=== PATIENT | female | born 1965 | race Two or more races ===

== ENCOUNTER 2016-11-11 13:23 | Emergency (ER) | payer OTHER ==
[~2016-11-11] VITALS: Ht 152.4 cm; Wt 61.2 kg
[2016-11-11] MEDS ORDERED: Methocarbamol 750mg tab ORAL ONE (14:15)
--- NOTE | 2016-11-11 14:27 | Emergency Room Report ---
History of Present Illness General Chief Complaint: Multiple Trauma/Fall Source: Patient Present Illness HPI 51-year-old female with no significant past medical history, presenting with left arm pain. Patient states that she was walking downstairs tripped and fell onto her left side. Patient denies any head trauma or LOC. Patient sustained bruising to her left arm. Patient now complaining of left arm pain as well as a right thigh tox pain. Left arm pain is localized to upper arm and elbow, patient says that she is able to move arm however with some pain. Patient also complaining of right buttocks pain radiating down the right leg sharp in nature. Patient denies any numbness or tingling to lower extremities. Patient states that she has been able to ambulate without any difficulty. Patient denies any saddle anesthesia or urinary retention. Not on blood thinners. Tetanus is not up-to-date. Allergies: Coded Allergies: NESTOR DUARTE (Verified Allergy, Unknown, 11/11/16) Patient History Past Medical History: see triage record Past Surgical History: none Pertinent Family History: none Last Menstrual Period: none Now: No Reviewed Nursing Documentation: PMH: Agreed, PSxH: Agreed Nursing Documentation-PMH Past Medical History: No Stated History Review of Systems All Other Systems: negative except mentioned in HPI Physical Exam Vital Signs Date Time Temp Pulse Resp B/P (MAP) Pulse Ox O2 Delivery O2 Flow Rate FiO2 11/11/16 13:48 98.1 83 18 137/83 98 Room Air Sp02 EP Interpretation: reviewed, normal General Appearance: normal inspection, well appearing, no apparent distress, alert, GCS 15, non-toxic, other - Middle aged female, conversing appropriately, appears to be in mild pain, ambulating around exam room Head: normocephalic, atraumatic Eyes: bilateral eye normal inspection, bilateral eye PERRL, bilateral eye EOMI ENT: normal ENT inspection, normal pharynx, normal voice, moist mucus membranes Neck: normal inspection, full range of motion, supple Respiratory: normal inspection, lungs clear, normal breath sounds, no respiratory distress, no retraction, no wheezing, speaking full sentences, chest symmetrical Cardiovascular #1: normal inspection, regular rate, rhythm, no edema, normal capillary refill Cardiovascular #2: 2+ radial (R), 2+ radial (L) Gastrointestinal: normal inspection, non tender, soft, non-distended, no guarding Genitourinary: no CVA tenderness Musculoskeletal: other - Mild right-sided lumbar paraspinal tenderness. No midline tenderness. Left distal humerus mild ecchymosis, tender to palpation, tender lateral elbow, limited range of motion secondary to pain. No tenderness along the wrist forearm or shoulder. Full range of motion wrist and shoulder. Distal pulses intact Neurologic: normal inspection, alert, oriented x3, responsive, motor strength/ tone normal, sensory intact, normal gait, speech normal, other - Motor strength 5 out of 5 all extremities. Psychiatric: normal inspection, judgement/insight normal, memory normal Skin: normal inspection, normal color, no rash, warm/dry, well hydrated, normal turgor Procedures Splinting Splinting : Consent: Verbal Location: L elbow Hand-Made Type: plaster Splint: sugar-tong - double sugar tong Pre-Proc Neuro Vasc Exam: normal Post-Proc Neuro Vasc Exam: normal Patient Tolerated: Well Complications: None Medical Decision Making ER Course 51 yo F with left arm pain and right back pain from fall, mechanical DDX: Contusion versus fracture versus dislocation Plan: X-ray elbow and left humerus, pain control ER course: Patient has remained stable during ED stay. Double sugar tong applied to L upper ext Disposition: Patient is to be discharged to home. Prescriptions given are motrin/robaxin Patient is instructed to follow up with their primary care doctor within 5 days. Patient is instructed to follow up with orthopedics in 1 week. Strict return precautions discussed with patient such as fever, chills, worsening/severe pain. Patient verbalizes understanding and agrees with plan. Please note that this Emergency Department Report was dictated using [employer] laboratory assistant technology software, occasionally this can lead to erroneous entry secondary to interpretation by the dictation equipment Other X-Ray Diagnostic Results Other X-Ray Diagnostic Results #1: X-Ray ordered: L Humerus # of Views/Limited Vs Complete: Complete Indication: Pain EP Interpretation: Yes Interpretation: no dislocation, no soft tissue swelling, no fractures Impression: No acute disease Interpreting ER Provider: Electronically signed by Cyndee Aponte MD Other X-Ray Diagnostic Results #2: # of Views/Limited Vs Complete: 3 View Indication: Pain EP Interpretation: Yes Interpretation: other - avulsion fracture of L olecranon Impression: Other - L olecranon fx, avulsion, non displaced Last Vital Signs Date Time Temp Pulse Resp B/P (MAP) Pulse Ox O2 Delivery O2 Flow Rate FiO2 11/11/16 13:48 98.1 83 18 137/83 98 Room Air Disposition: HOME, SELF-CARE Condition: Improved Scripts Methocarbamol* (ROBAXIN*) 500 Mg Tablet 500 MG PO QID, #28 TAB 0 Refills Prov: Cyndee Aponte M.D. 11/11/16 Ibuprofen* (MOTRIN*) 600 Mg Tablet 600 MG ORAL Q8H Y for For Pain, #30 TAB 0 Refills Prov: Cyndee Aponte M.D. 11/11/16 Cyndee Aponte M.D. Nov 11, 2016 14:27
[2016-11-11 14:28] VITALS: BP 137/83
[2016-11-11] MEDS ORDERED: ROBAXIN500 MG PO (15:12)
[2016-11-11] MEDS ORDERED: IBUPROFEN600 MG ORAL (15:12)
[2016-11-11 15:58] VITALS: BP 139/87
--- NOTE | 2016-11-12 10:39 | Diagnostic Imaging Report ---
Indications: PAIN Technique: Two views of the humerus Comparison: None Findings: No acute fractures. No dislocations. Joint spaces are preserved. No radiopaque foreign body. Normal mineralization. Impression: No acute process This agrees with the preliminary interpretation provided by the emergency room physician. This agrees with the preliminary interpretation provided overnight by [facility].
--- NOTE | 2016-11-12 10:50 | Diagnostic Imaging Report ---
Indications:PAIN Technique: Three or 4 views of the left elbow Comparison: None Findings:There are degenerative proliferative changes of the olecranon. No definite joint effusion. No acute fractures. No dislocations. Joint spaces are preserved. Impression:No acute bony trauma This agrees with the preliminary interpretation provided overnight by [facility].
== END 2016-11-11 15:38 | disposition home or self-care (01) ==
LOC: EMR 15:13
DX: M79.602 Pain in left arm (principal); S52.022A Displaced fracture of olecranon process without intraarticular extension of left ulna, initial encounter for closed fracture; S30.0XXA Contusion of lower back and pelvis, initial encounter; W01.0XXA Fall on same level from slipping, tripping and stumbling without subsequent striking against object, initial encounter; Y92.9 Unspecified place or not applicable
CPT/HCPCS: 29105; 99284

== ENCOUNTER 2016-11-23 11:07 | Emergency (ER) | payer OTHER ==
[~2016-11-23] VITALS: Ht 160 cm; Wt 54.4 kg
[~2016-11-23 11:07] MED LIST: IBUPROFEN600 MG ORAL; ROBAXIN500 MG PO
--- NOTE | 2016-11-23 11:22 | Emergency Room Report ---
History of Present Illness General Chief Complaint: Upper Extremity Injury Source: Patient Present Illness Allergies: Coded Allergies: NESTOR DUARTE (Verified Allergy, Unknown, 11/11/16) Patient History Last Menstrual Period: none Now: No Nursing Documentation-[facility] Past Medical History: No History, Except For Physical Exam Vital Signs Date Time Temp Pulse Resp B/P (MAP) Pulse Ox O2 Delivery O2 Flow Rate FiO2 11/23/16 11:10 98.2 89 18 124/80 98 Room Air Medical Decision Making ER Course Patient left without being seen Last Vital Signs Date Time Temp Pulse Resp B/P (MAP) Pulse Ox O2 Delivery O2 Flow Rate FiO2 11/23/16 11:10 98.2 89 18 124/80 98 Room Air Disposition: LEFT W/OUT BEING SEEN Condition: Unknown SONDRA PEREZ D.O. Nov 23, 2016 11:22
[2016-11-23 11:41] VITALS: BP 124/80
== END 2016-11-23 11:20 | disposition left against medical advice (07) ==
LOC: EMR 11:15
DX: S49.82XD Other specified injuries of left shoulder and upper arm, subsequent encounter (principal); Z53.21 Procedure and treatment not carried out due to patient leaving prior to being seen by health care provider
CPT/HCPCS: 99281

== ENCOUNTER 2017-05-20 14:25 | Emergency (ER) | payer MEDICAID, OTHER ==
[~2017-05-20] VITALS: Ht 152.4 cm; Wt 59.0 kg
[2017-05-20 14:54] VITALS: BP 131/73
[2017-05-20] MEDS ORDERED: Acetaminophen 500mg (ES) tab ORAL ONE (15:00)
[2017-05-20] MEDS ORDERED: IBUPROFEN600 MG ORAL (15:01)
[2017-05-20] MEDS ORDERED: TYLENOL325 MG ORAL (15:01)
--- NOTE | 2017-05-20 15:09 | Emergency Room Report ---
History of Present Illness General Chief Complaint: Multiple Trauma/Fall Present Illness HPI Patient is a 51-year-old female who presented after a reported slip and fall earlier in the day. Patient states that she was walking a laundromat when she slipped and fell onto her left side. Patient reports having moderate pain to the left shoulder or left elbow and left hip. She denies any severe neck pain. She denied loss of consciousness. She denies any numbness or weakness to her extremities. Patient had prior olecranon fracture. She denies any prior medications. Review systems is positive for right inguinal lump but she states she just noticed. Allergies: Coded Allergies: NESTOR DUARTE (Verified Allergy, Unknown, 11/11/16) Patient History Reviewed Nursing Documentation: PMH: Agreed, PSxH: Agreed Nursing Documentation-PMH Hx Gastrointestinal Problems: Yes - GASTRITIS Review of Systems All Other Systems: negative except mentioned in HPI Physical Exam Vital Signs Date Time Temp Pulse Resp B/P (MAP) Pulse Ox O2 Delivery O2 Flow Rate FiO2 05/20/17 14:29 98.0 85 16 133/82 95 Room Air 98.1 Sp02 EP Interpretation: reviewed, normal General Appearance: normal inspection, alert, no apparent distress, GCS 15 Head: normocephalic, atraumatic Eyes: normal eye exam, PERRL, EOMI, lids + conjunctiva normal, no hyphema, no racoon eyes ENT: normal ENT inspection, TMs + canals normal, oropharynx normal, no pope signs Neck: trach midline, no bony tend, full range of motion without pain Respiratory: effort normal, no retractions, clear to auscultation, chest symmetrical, palpation of chest normal, speaking in full sentences Cardiovascular: regular rate, rhythm, no JVD Cardiovascular #2: 2+ radial (R), 2+ radial (L), 2+ dorsalis pedis (R), 2+ dorsalis pedis (L) Gastrointestinal: normal inspection, non-tender, non-distended, no rebound/ guarding, normal bowel sounds, other - right inguinal hernia Genitourinary: normal inspection Musculoskeletal: normal inspection, normal ROM, back normal, other - tenderness to left paraspinous muscles, no midline tenderness, normal gait, deformity to left elbow chronic Skin: no rash, no lacerations, normal palpation Lymphatic: normal inspection Neurologic: normal inspection, CN II-XII intact, oriented x3, sensory intact, motor strength/tone normal, normal speech Psychiatric: normal inspection, memory normal, mood normal, no suicidal/ homicidal ideation Medical Decision Making Diagnostic Impression: Primary Impression: Fall Additional Impressions: Contusion Low back strain ER Course Patient presented for back pain. Differential diagnosis included but was not limited to herniated disc, cauda equina syndrome, abdominal aortic aneurysm, perforated ulcer, spinal epidural abscess, spinal stenosis, lumbar fracture, metastatic lesion, pyelonephritis. Patient has a benign exam and does not appear to require any further imaging or laboratory testing at this time. Patient is also noted to have what appears to be nonincarcerated right inguinal hernia. She was advised to general surgery follow-up for elective repair.The patient is advised to follow up with primary care doctor in 1-2 days. Patient is advised to return if any worsening condition or if any changes in status that are concerning. This report is dictated with [employer] purchasing manager/sales software which may occasionally lead to discrepancies related to use of this software. Last Vital Signs Date Time Temp Pulse Resp B/P (MAP) Pulse Ox O2 Delivery O2 Flow Rate FiO2 05/20/17 14:54 98.5 73 16 131/73 96 Room Air 98.5 Status: improved Disposition: HOME, SELF-CARE Condition: Stable Scripts Ibuprofen* (MOTRIN*) 600 Mg Tablet 600 MG ORAL Q8H Y for For Pain, #30 TAB 0 Refills Prov: Tristin Ferreira 05/20/17 Acetaminophen (Tylenol) 325 Mg Tablet 650 MG ORAL Q6H Y for Prn Pain/Headache/Temp > 101, #30 TAB 0 Refills Prov: Tristin Ferreira 05/20/17 Patient Instructions: Back Pain, Adult Tristin Ferreira May 20, 2017 15:09
[2017-05-20 15:12] VITALS: BP 131/73
== END 2017-05-20 15:12 | disposition home or self-care (01) ==
LOC: EMR 15:00
DX: S39.012A Strain of muscle, fascia and tendon of lower back, initial encounter (principal); W01.0XXA Fall on same level from slipping, tripping and stumbling without subsequent striking against object, initial encounter; Y92.89 Other specified places as the place of occurrence of the external cause; K40.90 Unilateral inguinal hernia, without obstruction or gangrene, not specified as recurrent
CPT/HCPCS: 99284